=== PATIENT | female | born 1950 | race Caucasian/White ===

== ENCOUNTER 2017-03-21 15:12 | Emergency (ER) | payer MEDICARE, BC ==
--- NOTE | 2017-03-21 15:24 | UC ---
Complaint Female HPI - HPI Summary HPI Summary: 66 y/o female presents to the urgent care c/o frequency and burning on urination since yesterday. Pt reports she did a vaginal douche about 2 days ago and she thinks it caused her symptoms to worsen. 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 It was Rx 1 applicator qhs x 10 days and then every 2 weeks x 6months. She has a f/u appt. next week. Pt states she has a vaginal discharge with mild suprapubic pressure. She started using the Metrogel last night. However she wanted to make sure she doesn't have an UTI. Pt denies fever, back pain, hematuria, abdominal pain, N/V/D. - History Of Current Complaint Stated Complaint: URINARY COMPLAINT Time Seen by Provider: 03/21/17 15:23 Hx Obtained From: Patient ?: No Onset/Duration: Gradual Onset, Lasting Days - yesterday, Still Present Timing: Intermittent Severity Initially: Mild Severity Currently: Moderate Pain Intensity: 6 Pain Scale Used: 0-10 Numeric Character: Burning Aggravating Factor(s): Urination Associated Signs And Symptoms: Positive: Vaginal Discharge. Negative: Fever, Back Pain, Nausea, Vomiting(# Of Episodes =), Genital Swelling - Risk Factors Ectopic Risk Factor: Negative Ovarian Torsion Risk Factor: Negative - Allergies/Home Medications Allergies/Adverse Reactions: Allergies Allergy/AdvReac Type Severity Reaction Status Date / Time Sulfa Antibiotics Allergy Hives/Diff. Verified 03/21/17 15:44 Breathing/I tching Home Medications: Home Medications Ranitidine HCl 150 mg PO BID 03/21/17 [History Confirmed 03/21/17] metroNIDAZOLE VAGINAL 0.75%* 1 applic VAGINAL BEDTIME 03/21/17 [History Confirmed 03/21/17] PMH/Surg Hx/FS Hx/Imm Hx Previously Healthy: Yes Endocrine History: Hypothyroidism, Dyslipidemia Other Respiratory History: Seasonal allergies GI/ History: Gastroesophageal Reflux - Surgical History Surgical History: Yes Surgery Procedure, Year, and Place: GALLBLADDER. APPENDIX. NASAL SEPTUM . Left breast malignant mass removed Apr 2014 - stage 1 - Family History Family History: Hypothyrodism - Social History Alcohol Use: Occasionally Substance Use Type: None Smoking Status (MU): Never Smoked Tobacco Household Exposure Type: Cigarettes - Immunization History Most Recent Influenza Vaccination: 12/01/14 Review of Systems Constitutional: Negative Skin: Negative Eyes: Negative ENT: Negative Respiratory: Negative Cardiovascular: Negative Gastrointestinal: Negative Genitourinary: Frequency, Urgency, Vaginal/Penile Burning, Vaginal/Penile Discharge Motor: Negative Neurovascular: Negative Musculoskeletal: Negative Neurological: Negative Psychological: Negative Is Patient Immunocompromised?: No All Other Systems Reviewed And Are Negative: Yes Physical Exam Triage Information Reviewed: Yes - Additional Comments VITAL SIGNS: Reviewed. GENERAL: Patient is a well developed and nourished female who is sitting comfortable in the examining table. Patient is not in any acute respiratory distress. HEAD AND FACE: No signs of trauma. No ecchymosis, hematomas or skull depressions. No sinus tenderness. EYES: PERRLA, EOMI x 2, No injected conjunctiva, clear watery eyes, no nystagmus. No photophobia. EARS: Hearing grossly intact. Ear canals and tympanic membranes are within normal limits. MOUTH: pharynx with no erythema, no exudates,no palatal petechiae. no B/L tonsillar enlargement Uvula in midline. NECK: Supple, trachea is midline, no lymphadenopathy, no JVD, no carotid bruit, no c-spine tenderness, neck with full ROM. CHEST: Symmetric, no tenderness at palpation LUNGS: Clear to auscultation bilaterally. No wheezing or crackles. CVS: Regular rate and rhythm, S1 and S2 present, no murmurs or gallops appreciated. ABDOMEN: Soft, non-tender. No signs of distention. No rebound no guarding, and no masses palpated. Bowel sounds are normal. BACK:no scoliosis or lesions, non tender to palpation, No B/L CVA tenderness EXTREMITIES: FROM in all major joints, no edema, no cyanosis or clubbing. NEURO: Alert and oriented x 3. No acute neurological deficits. Speech is normal and follows commands. SKIN: Dry and warm Complaint Female Dx - Course Course Of Treatment: 66 y/o female presents to the urgent care c/o frequency and burning on urination since yesterday. Pt reports she did a vaginal douche about 2 days ago and she thinks it caused her symptoms to worsen. 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 It was Rx 1 applicator qhs x 10 days and then every 2 weeks x 6months. She has a f/u appt. next week. Pt states she has a vaginal discharge with mild suprapubic pressure. She started using the Metrogel last night. However she wanted to make sure she doesn't have an UTI. Pt denies fever, back pain, hematuria, abdominal pain, N/V/D.Hx obtained. PE: WNL. Pt declined pelvic examination. UA results: leukoesteraces :trace H. Pt Rx Pyridium 100mg PO TID x 2 days to allevaite Dyuria. Advised to increase fluid intake. Urine sent for culture to r/o any abnormality Pt will be notified for further treatment. Pt advised to continue with Metrogel qhs and f/y with her [employer] If symptoms do not improve for further management. Pt's BP is elevated today advised to decrease salt in diet, monitor BP and f/u with PCP for further management. Pt understood and agreed. Left the clinic ambulating. - Differential Dx/Diagnosis Differential Diagnosis/HQI/PQRI: Cervicitis, Pelvic Inflammatory Disease, Renal Colic, Ureteral Stone, Urinary Tract Infection, Other - Vaginosis Provider Diagnoses: 1- Dysuria. 2- Bacterial Vaginosis. 3-Elevated BP w/o Hx of HTN Discharge - Discharge Plan Condition: Stable Disposition: HOME Prescriptions: Phenazopyridine TAB* [Pyridium 100 mg TAB*] 100 mg PO TID #6 tab Patient Education Materials: Dysuria (ED), Low Sodium Diet (ED) Referrals: Rosetta Pearson MD [Primary Care Provider] - 2 Days Additional Instructions: 1- Please take Pyridium 100 mg PO TID x 2 days to alleviate urinary symptoms. Increase increase fluid intake. drink cranberry juice. 2- Continue using the Metronidazol gel applicator at night time for 10 days as instructed by you PCP. Avoid sexual intercourse while on treatment. 2-Urine sent for culture if any abnormality, you will be notified for further treatment. 3-If symptoms do not improve please return to the urgent care or f/u with her PCP. 4-Your BP is elevated today. please decrease salt in your diet, monitor BP and if it continues to be elevated please f/u with your PCP for further management
[2017-03-21 15:44] VITALS: BP 143/64
--- NOTE | 2017-03-23 07:25 | UC ---
- Progress Note Progress Note: Urine culture shows klebsiella. Please start cipro 500mg po bid for 10 days. I will send in Rx. Course/Dx - Course Course Of Treatment: 66 y/o female presents to the urgent care c/o frequency and burning on urination since yesterday. Pt reports she did a vaginal douche about 2 days ago and she thinks it caused her symptoms to worsen. 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 It was Rx 1 applicator qhs x 10 days and then every 2 weeks x 6months. She has a f/u appt. next week. Pt states she has a vaginal discharge with mild suprapubic pressure. She started using the Metrogel last night. However she wanted to make sure she doesn't have an UTI. Pt denies fever, back pain, hematuria, abdominal pain, N/V/D.Hx obtained. PE: WNL. Pt declined pelvic examination. UA results: leukoesteraces :trace H. Pt Rx Pyridium 100mg PO TID x 2 days to allevaite Dyuria. Advised to increase fluid intake. Urine sent for culture to r/o any abnormality Pt will be notified for further treatment. Pt advised to continue with Metrogel qhs and f/y with her [employer] If symptoms do not improve for further management. Pt's BP is elevated today advised to decrease salt in diet, monitor BP and f/u with PCP for further management. Pt understood and agreed. Left the clinic ambulating.
== END 2017-03-21 16:20 | disposition home or self-care (01) ==
LOC: UCCORT 15:12
DX: R30.0 Dysuria (principal); N76.0 Acute vaginitis; R03.0 Elevated blood-pressure reading, without diagnosis of hypertension; E03.9 Hypothyroidism, unspecified; E78.5 Hyperlipidemia, unspecified; K21.9 Gastro-esophageal reflux disease without esophagitis; Z90.49 Acquired absence of other specified parts of digestive tract; Z88.2 Allergy status to sulfonamides; Z77.22 Contact with and (suspected) exposure to environmental tobacco smoke (acute) (chronic)
CPT/HCPCS: 81003; 87077; 87086; 87186; 99212; G0463

== ENCOUNTER 2017-04-25 15:51 | Emergency (ER) | payer MEDICARE, BC ==
--- NOTE | 2017-04-25 17:59 | UC ---
Throat Pain/Nasal Yahir HPI - HPI Summary HPI Summary: 66 y/o female presents to the urgent care c/o sinus congestion w/ yellowish nasal discharge,ALMAGUER, dry cough since 04/20/2017. Pt reports symptoms stated w/ mild low grade fever, nasal congestion, body aches. She has Hx of recurrent sinusitis. Pain is 5/10. Pt has taking OTC medication w/o any improvement of symptoms. Pt denies SOB, chest pain, abdominal pain, N/V/D. 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 Verified 04/25/17 17:49 Antibiotics) Breathing/I tching Home Medications: Home Medications Amlodipine Besylate [Norvasc 2.5 mg tab] 2.5 mg PO DAILY 04/25/17 [History Confirmed 04/25/17] PMH/Surg Hx/FS Hx/Imm Hx Previously Healthy: Yes Endocrine History: Hypothyroidism, Dyslipidemia GI/ History: Gastroesophageal Reflux - Surgical History Surgical History: Yes Surgery Procedure, Year, and Place: GALLBLADDER. APPENDIX. NASAL SEPTUM . Left breast malignant mass removed Apr 2014 - stage 1 - Family History Known Family History: Positive: Hypertension Family History: Hypothyrodism - Social History Occupation: Retired Lives: With Family Alcohol Use: Occasionally Substance Use Type: None Smoking Status (MU): Never Smoked Tobacco Household Exposure Type: Cigarettes - Immunization History Most Recent Influenza Vaccination: 12/01/14 Review of Systems Constitutional: Negative Skin: Negative Eyes: Negative ENT: Nasal Discharge, Sinus Congestion, Sinus Pain/Tenderness Respiratory: Negative Cardiovascular: Negative Gastrointestinal: Negative Genitourinary: Negative Motor: Negative Neurovascular: Negative Musculoskeletal: Negative Neurological: Headache Psychological: Negative Is Patient Immunocompromised?: No All Other Systems Reviewed And Are Negative: Yes Physical Exam Triage Information Reviewed: Yes Vital Signs: Initial Vital Signs Temp 98.9 F 04/25/17 17:44 Pulse 72 04/25/17 17:44 Resp 16 04/25/17 17:44 BP 147/71 04/25/17 17:44 Pulse Ox 99 04/25/17 17:44 - Additional Comments Vitals: reviewed General: Well developed, well-nourished female patient with NAD. Head and face: Normocephalic and atraumatic, Positive tenderness over the frontal and maxillary sinuses.. Eyes: PERRLA, EOMI x 2. Normal conjunctiva. No eye discharge. ENT: Ears and TM with normal limits. Nose: with yellowish discharge and erythematous mucosa. Pharynx with erythema , no exudate. Neck: Supple, no JVD, no carotid bruits and no lymphadenopathy. Lungs: clear, no rales, no rhonchi, no wheezes. CVS: RRR, S1 and S2 present no murmurs or gallops appreciated. Abdomen: soft nontender with positive bowel sounds. Extremities: no edema noted. Neuro: WNL. Skin: warm and dry Throat Pain/Nasal Course/Dx - Course Course Of Treatment: 66 y/o female presents to the urgent care c/o sinus congestion w/ yellowish nasal discharge,ALMAGUER, dry cough since 04/20/2017. Pt reports symptoms started w/ mild low grade fever, nasal congestion, body aches. She has Hx of recurrent sinusitis. Pain is 5/10. Pt has taking OTC medication w/ o any improvement of symptoms. Pt denies SOB, chest pain, abdominal pain, N/V/ D. Hx obtained. Pt w/ sinusitis on examiantion. Rapdi Influenxa A&B ordered: result: negative. Pt with 1 week of symptoms getting worse. Pt Rx Augmentin PO and flonase nasal spray. Discharge instructions explained to Pt. Advised to Return to the clinic or PCP if symptoms do not improve.Pt's BP is elevated today advised to decrease salt in diet, monitor BP and f/u with PCP for further management. Pt understood and agreed with plan of care. - Differential Dx/Diagnosis Differential Diagnosis/HQI/PQRI: Influenza, Laryngitis, Pharyngitis, Sinusitis, URI Provider Diagnoses: 1-Acute bacterial sinusitis. 2-Elevated BP w/o Hx of HTN Discharge - Discharge Plan Condition: Stable Disposition: HOME Prescriptions: Amoxicillin/Clavulanate TAB* [Augmentin TAB 875*] 875 mg PO BID #20 tab Fluticasone NASAL SPRAY 50MCG* [Flonase NASAL SPRAY 50MCG*] 2 spray BOTH NARES DAILY #1 btl Loratadine/Pseudoephedrine [Loratadine-D 12Hr] 1 tab PO BID #20 tab Patient Education Materials: Sinusitis (ED), Low-Sodium Diet (ED) Referrals: Rosetta Pearson MD [Primary Care Provider] - 3 Days Additional Instructions: 1- Please increase fluid intake and rest. take full course of antibiotic to avoid resistance 2-Use Flonase as directed to help drain fluid. Also buy saline drops to clear sinuses 3-Take Sudafed or Claritin PO to alleviates sinus congestion 4-Return to the clinic or PCP if symptoms do not improve for further management and treatment 5-Your BP is elevated today. please decrease salt in your diet, monitor BP and if it continues to be elevated please f/u with your PCP for further management
[2017-04-25 20:37] VITALS: BP 149/75
== END 2017-04-25 19:48 | disposition home or self-care (01) ==
LOC: UCEAST 15:51
DX: J01.90 Acute sinusitis, unspecified (principal); R03.0 Elevated blood-pressure reading, without diagnosis of hypertension; E03.9 Hypothyroidism, unspecified; E78.5 Hyperlipidemia, unspecified; K21.9 Gastro-esophageal reflux disease without esophagitis; Z88.2 Allergy status to sulfonamides
CPT/HCPCS: 87502; 99212; G0463

== ENCOUNTER 2018-01-22 12:32 | Emergency (ER) | payer MEDICARE, BC ==
[2018-01-22] MEDS ORDERED: cefTRIAXone VIAL(*) 1,000 MG VIAL IM ONE (13:45)
[2018-01-22] MEDS ORDERED: Lidocaine 1%* 5 ML VIAL ONE (13:50)
[2018-01-22 14:03] VITALS: BP 150/77
--- NOTE | 2018-01-22 15:02 | ED ---
HPI Febrile Illness - HPI Summary HPI Summary: Pt is a 67 y/o female who presents to the ED c/o fever. She was diagnosed with a UTI 4 days ago and was placed on Macrobid. Her urinary symptoms are now resolved, however 2 days ago she began to have a fever of 101 degrees F with diaphoresis. Pt also c/o ALMAGUER, sinus pressure, and mild abdominal pain. She denies any current dysuria, cough, or neck pain. Pt has been having frequent UTIs recently. She has taken Tylenol for her sx. 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 Verified 04/25/17 17:49 Antibiotics) Breathing/I tching Home Medications: Home Medications Loratadine [Claritin 10 MG CAP] 1 cap PO DAILY PRN 01/22/18 [History Confirmed 01/22/18] Multivit-Min/Folic Acid/Vit K1 [Multi For Her 50 Plus Softgel] 1 cap PO DAILY [History Confirmed 01/22/18] Nitrofurantoin Monohyd/M-Cryst [Macrobid 100 mg Capsule] 1 tab PO BID 01/22/18 [ History Confirmed 01/22/18] Phenazopyridine HCl [Phenazopyridine 100 mg tab] 1 tab PO TID 01/22/18 [History Confirmed 01/22/18] PMH/Surg Hx/FS Hx/Imm Hx Endocrine/Hematology History: Reports: Hx Diabetes, Hx Thyroid Disease Cardiovascular History: Denies: Hx Hypertension, Hx Pacemaker/ICD History: Denies: Hx Dialysis, Hx Renal Disease Sensory History: Denies: Hx Hearing Aid Psychiatric History: Reports: Hx Depression Denies: Hx Panic Disorder - Cancer History Cancer Type, Location and Year: Left breast - removed mass - positive for cancer. radiation treatment completed. Apr 2014 - Surgical History Surgery Procedure, Year, and Place: GALLBLADDER. APPENDIX. NASAL SEPTUM . Left breast malignant mass removed Apr 2014 - stage 1 Infectious Disease History: No Infectious Disease History: Denies: History Other Infectious Disease, Traveled Outside the [place] in Last 30 Days - Family History Known Family History: Positive: Hypertension, Other - Hypothyrodism - Social History Alcohol Use: Occasionally Hx Substance Use: No Substance Use Type: Reports: None Hx Tobacco Use: No Smoking Status (MU): Never Smoked Tobacco Review of Systems Positive: Fever Positive: Other - Sinus pressure Negative: Cough Positive: Abdominal Pain Genitourinary: Negative Negative: Myalgia - neck pain Positive: Headache All Other Systems Reviewed And Are Negative: Yes Physical Exam - Summary Physical Exam Summary: Appearance: Well appearing, no pain distress Skin: warm, dry, reflects adequate perfusion Head/face: normal Eyes: EOMI, JEISON ENT: mucous membranes moist, ears normal, throat clear Neck: supple, non-tender Respiratory: CTA, breath sounds present Cardiovascular: RRR, pulses symmetrical Abdomen: non-tender, soft, no CVA tenderness Bowel Sounds: present Musculoskeletal: normal, strength/ROM intact Neuro: normal, sensory motor intact, A&Ox3 Triage Information Reviewed: Yes Vital Signs On Initial Exam: Initial Vitals Temp Pulse Resp BP Pulse Ox 98.8 F 76 16 149/61 93 01/22/18 12:40 01/22/18 12:40 01/22/18 12:40 01/22/18 12:40 01/22/18 12:40 Vital Signs Reviewed: Yes Diagnostics - Vital Signs Vital Signs Temp Pulse Resp BP Pulse Ox 01/22/18 14:01 99 F 69 17 150/77 96 01/22/18 12:40 98.8 F 76 16 149/61 93 - Laboratory Lab Statement: Any lab studies that have been ordered have been reviewed, and results considered in the medical decision making process. Course/Dx - Course Course Of Treatment: Patient with recent urinary tract infection treated with Macrobid presents with fever that his central resolved. She has not had any body aches or rigors. She is feeling okay at present noun has no CVA tenderness. She was given a dose of intramuscular Rocephin and a urine culture was sent off. She was well to be discharged and will follow-up with her primary care physician. - Febrile Illness Differential Diagnoses: Other: - partially tx UTI, pneumonia, sepsis, sinus infection - Diagnoses Provider Diagnoses: UTI (urinary tract infection), Fever Discharge - Sign-Out/Discharge Documenting (check all that apply): Patient Departure - Discharge - Discharge Plan Condition: Improved Disposition: HOME Patient Education Materials: Urinary Tract Infection in Women (ED) Referrals: Rosetta Pearson MD [Primary Care Provider] - Additional Instructions: Continue your antibiotic and medication to help for the burning. Tylenol, ibuprofen as needed for fever or body aches. Drink plenty of fluids, cranberry juice may help. Return with high fever, vomiting, increased pain, worse or other concerns. Call in the morning to schedule prompt follow-up with your doctor. If you have persistent symptoms a renal ultrasound may be warranted. - Billing Disposition and Condition Condition: IMPROVED Disposition: Home - Attestation Statements Document Initiated by Shanice: Yes Documenting Scribe: Emperatriz Porras Provider For Whom Shanice is Documenting (Include Credential): Shreyas Lazo MD Scribe Attestation: Emperatriz Milan, scribed for Shreyas Lazo MD on 01/22/18 at 1701. Scribe Documentation Reviewed: Yes Provider Attestation: The documentation as recorded by the Emperatriz garza accurately reflects the service I personally performed and the decisions made by , Shreyas Lazo MD
== END 2018-01-22 14:01 | disposition home or self-care (01) ==
LOC: ED 12:32
DX: N39.0 Urinary tract infection, site not specified (principal); E11.9 Type 2 diabetes mellitus without complications; E07.9 Disorder of thyroid, unspecified; Z85.3 Personal history of malignant neoplasm of breast
CPT/HCPCS: 87086; 96372; 99282; J0696

== ENCOUNTER 2018-06-25 10:51 | Emergency (ER) | payer MEDICARE, OTHER ==
[2018-06-25 11:10] VITALS: BP 132/60
--- NOTE | 2018-06-25 11:14 | UC ---
Respiratory Complaint HPI - HPI Summary HPI Summary: Patient is a 67 year old female , who present today to the urgent care with sinus pressure for past 3-4 days. she reports that he having headaches along with postnasal dripping and congestion. headache is localized in the frontal area She has a history of sinusitis in the past and underwent surgery for that. Denies any sick contacts, fever or chills. No sore throat. 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 Verified 06/25/18 11:07 Antibiotics) Breathing/I tching PMH/Surg Hx/FS Hx/Imm Hx - Additional Past Medical History Additional PMH: hyperlipidemia GERD Hypertension Anxiety breast cancer Previously Healthy: Yes - Surgical History Surgical History: Yes Surgery Procedure, Year, and Place: GALLBLADDER. APPENDIX. NASAL SEPTUM . Left breast malignant mass removed Apr 2014 - stage 1 /right breast biopsy with lymph node removal - Family History Known Family History: Positive: Hypertension, Other - Hypothyrodism - Social History Alcohol Use: Occasionally Substance Use Type: None Smoking Status (MU): Never Smoked Tobacco Household Exposure Type: Cigarettes - Immunization History Most Recent Influenza Vaccination: 12/01/14 Review of Systems All Other Systems Reviewed And Are Negative: Yes Constitutional: Positive: Negative Skin: Positive: Negative Eyes: Positive: Negative ENT: Positive: Sinus Congestion, Sinus Pain/Tenderness. Negative: Sore Throat Respiratory: Positive: Negative. Negative: Cough Cardiovascular: Positive: Negative Gastrointestinal: Positive: Negative Genitourinary: Positive: Negative Motor: Positive: Negative Neurovascular: Positive: Negative Musculoskeletal: Positive: Negative Neurological: Positive: Headache - frontal Psychological: Positive: Negative Is Patient Immunocompromised?: No Physical Exam - Summary Physical Exam Summary: Physical Exam: Const: Appears well. No signs of apparent distress present. Alert and oriented x 3. Musculo: Walks with a normal gait. Head/Face: Atraumatic, normocephalic on inspection. Eyes: EOMI and PERRLA in both eyes. Conjunctivae clear. No discharge noted ENT: Hearing normal, TM normal appearing bilaterally,slight redness on the left side TM there istenderness to palpation on ethmoidand frontal sinus bilaterally, mild tenderness on the maxillary sinuses bilaterally minimalpharyngeal erythema with cobblestoning noted. Uvula is midline. bilateral anterior submandibular lymphadenopathy noted. nontender Respiratory: Respirations are unlabored. Lungs clear to auscultation bilaterally, no wheezing , rhonchi or rales noted . CVS: Regular rate and Rhythm, S1S2 normal , no murmurs identified. Extremities: Peripheral circulation is grossly normal. Pulses 2+ Abdomen : Soft non tender , nondistended , Bowel sounds present . No guarding , rebound tenderness or rigidity noted. Skin: No lesions or rash located on the upper extremities or on the lower extremities. Neuro: Cranial nerves II to XII intact, motor and sensory intact. DTR Intact bilaterally. Mood is normal. Affect is normal. Triage Information Reviewed: Yes Vital Signs: Initial Vital Signs Temp 98 F 06/25/18 11:04 Pulse 79 06/25/18 11:04 Resp 17 06/25/18 11:04 BP 132/60 06/25/18 11:04 Pulse Ox 98 06/25/18 11:04 Vital Signs Reviewed: Yes Respiratory Course/Dx - Course Course Of Treatment: During the visit today, we discussed the findings and further plan. I will prescribe the medication to the pharmacy . she has Nasacort nasal spray that she'll start using Patient expressed understanding . - Differential Dx/Diagnosis Provider Diagnosis: Sinusitis, acute Discharge - Sign-Out/Discharge Documenting (check all that apply): Patient Departure All imaging exams completed and their final reports reviewed: No Studies - Discharge Plan Condition: Stable Disposition: HOME Prescriptions: Amoxicillin/Clavulanate TAB* [Augmentin TAB 875*] 875 mg PO BID 14 Days #28 tab Patient Education Materials: Sinusitis (ED) Referrals: Rosetta Pearson MD [Primary Care Provider] - 1 Week Additional Instructions: Please start taking the medication as prescribed to the pharmacy . Please use nasocort spray that you have . Follow up with your primary care doctor in 1 week Patients blood pressure slightly high in Urgent care today , plan follow up with PCP for better control Return to Urgent care / ER if symptoms get worse. - Billing Disposition and Condition Condition: STABLE Disposition: Home
[2018-06-25] MEDS ORDERED: Morphine 10 MG/ML VIAL (1 ml) IM ONE (11:18)
== END 2018-06-25 11:55 | disposition home or self-care (01) ==
LOC: UCEAST 10:51
DX: J01.90 Acute sinusitis, unspecified (principal); E78.5 Hyperlipidemia, unspecified; K21.9 Gastro-esophageal reflux disease without esophagitis; I10 Essential (primary) hypertension; F41.9 Anxiety disorder, unspecified; Z88.2 Allergy status to sulfonamides
CPT/HCPCS: 99212; G0463